=== PATIENT | female | born 1995 | race Caucasian/White ===

== ENCOUNTER → 2017-07-25 | Outpatient (CLI) | payer BC ==
[2017-07-25 19:05] LABS: HEMATOCRIT 33.2 % (37-47); MEAN CELL VOLUME 90.2 fL (80-100); MEAN CORPUSCULAR HGB CONC 34.3 g/dl (32-36); PLATELET COUNT 208 K/uL (130-400); RED BLOOD COUNT 3.68 M/uL (4.2-5.4)
== END ==
LOC: C.LAB 18:43
PROVIDERS: ATTEND Obstetrics & Gynecology
DX: O20.0 Threatened abortion (principal); Z3A.00 Weeks of gestation of pregnancy not specified

== ENCOUNTER → 2017-07-28 | Outpatient (CLI) | payer BC | END | disposition home or self-care (01) | LOC: C.PAPS 12:00 | PROVIDERS: ATTEND Obstetrics & Gynecology | DX: Z87.898 Personal history of other specified conditions (principal) ==

== ENCOUNTER → 2017-11-17 | Outpatient (CLI) | payer BC | END | disposition home or self-care (01) | LOC: C.LAB1850 09:09 | PROVIDERS: ATTEND Obstetrics & Gynecology | DX: N93.8 Other specified abnormal uterine and vaginal bleeding (principal) ==

== ENCOUNTER 2019-03-14 08:32 | Inpatient (IN) ==
[2019-03-14] MEDS ORDERED: OXYTOCIN 30 UNITS/500 ML BAG IV PRN ×3 (09:23→16:00)
--- NOTE | 2019-03-14 09:26 | History & Physical Report ---
Date of Service March 14, 2019 Assessment & Plan (1) SROM (spontaneous rupture of membranes): monitoring vitals and FHT (Category 1) Doing well so far will continue to monitor progress of labor and help with pitocin or readjustment of position as necessary Present on Admission?: Yes History of Present Illness Primary Care Provider: Amanuel Bethea MD 37w 2 days confirmed via ultrasound on 08/17/2018. Here for SROM and supervision of vaginal delivery. No complications with this . Has been attending OB appointments regularly. Currently taking vitamins, iron supplement, 20mg lexapro daily and has been taking valtrex for the past week due to hx of herpes vaginalis. No signs of active outbreak. Contractions: regular and more frequent since 3 am today. Fluid or Blood loss: SROM at 7 am this morning Movement: active Labs Blood type: A+ Antibody screen: neg H.7 on 01/10/2019 Hct: 31.9 Wbc: - Plt: - Rubella: immune VDRL/RPR: nonreactive Gonorrhea:neg Chlamydia:neg HIV: neg HBsAg: neg GBS:neg Glucose tolerance x2: neg x2 Allergies Allergy/AdvReac Type Severity Reaction Status Date / Time No Known Allergies Allergy Verified 03/13/19 10:26 Home Medications Home Medications Medication Instructions Recorded Confirmed Type PNV cmb#95-ferrous fumarate-FA 1 tab PO DAILY 02/26/19 03/14/19 History [] escitalopram oxalate [Lexapro] 20 mg PO DAILY 02/26/19 03/14/19 History valacyclovir 500 mg tablet 500 mg PO DAILY 03/11/19 03/14/19 History ferrous sulfate 1 tab PO DAILY 03/13/19 03/14/19 History Patient History Medical History Genital herpes simplex History of herpes genitalis Anxiety Bacterial vaginosis History of abnormal cervical Pap smear History of anemia Surgical History S/P wisdom tooth extraction Family History Grandfather (Maternal) Pancreatic cancer Social History Preferred Language: German Communication Ability: Effective Section Weaver Required: No Beliefs That Will Affect Care: None marital status: Current Living Situation: Spouse Feels Safe at Home: Yes Smoking Status: Former smoker Second Hand Exposure: No ; Hx Alcohol Use: No Hx Substance Use: No Review of Systems + fatigue; no fever and no chills no cough, no dyspnea and no wheezing + edema; no chest pain and no calf pain + cramping; no abdominal pain, no nausea, no vomiting, no constipation and no diarrhea/loose stools no dysuria and no difficulty urinating no back pain Physical Exam Constitutional: well developed and well nourished Respiratory: normal respiratory effort; no respiratory distress, no labored breathing and no cough Auscultation: no diminished lung sounds, no crackles, no rales, no rhonchi and no wheezes Cardiovascular: Rate/Rhythm: regular rate and regular rhythm Extremities: normal capillary refill and + pedal edema; no calf tenderness Gastrointestinal (Abdomen): Inspection/Auscultation: + abdomen distended and normal bowel sounds Percussion/Palpation: abdomen nontender and no guarding Genitourinary: Speculum/Bimanual Exam: + uterus enlarged OB Exam Abdomen: + fundal height Fundus: + firm and + relation to umbilicus (high above umbilicus); not tender Cervical Exam per OB: Dilation - 3 cm Effacement - 90% Station --2 Results & Data Vital Signs (Past 12 Hours) Vital Signs Pulse BP 03/14/19 08:53 86 118/77 Monitoring External Monitor Heart Monitor: Moderate Variability Accelerations No Decels baseline HR 135 Tocodynamometer Contraction Frequency: regular at every 3-4 minutes Supervising Physician Co-Signing Physician Notes Resident Physician Supervision Note: I was present with Dr. Edmonds during the history and exam. I discussed the case with the resident and agree with the findings and plan as documented in the note. Any exceptions or clarifications are listed here: [None] Documented By: Maggie Woo MD, FACOG
[2019-03-14 09:45] LABS: Hematocrit (blood only) 33.7 % (37-47); Hemoglobin 11.3 g/dL (12.0-16.0); Mean Corpuscular Volume 92.8 fL (80-100); Mean Platelet Volume 11.4 fL (7.4-10.4); Platelet Count 150 K/uL (130-400); RDW Coefficient of Variation 13.2 % (11.5-14.5); RDW Standard Deviation 44.5 fL (36.4-46.3); Red Blood Count 3.63 M/uL (4.2-5.4); White Blood Count 5.44 K/uL (4.8-10.8)
[2019-03-14 09:48] LABS: Mean Corpuscular Hgb Conc 33.5 g/dL (32-36)
[2019-03-14] MEDS: LACTATED RINGER'S 1,000 ML IV PRN ×2 (10:39→11:36)
[2019-03-14] MEDS ORDERED: BUPIVACAINE 0.25% 30 ML VIAL ONE (11:22)
[2019-03-14] MEDS ORDERED: ePHEDrine sulfate 50 MG/ML AMP ONE (11:22)
[2019-03-14] MEDS ORDERED: fentaNYL 2MCG/ML ROPIV 1.25MG/ML 100 ML BAG EPI ONE (11:23)
[2019-03-14] MEDS ORDERED: fentaNYL citrate 100 MCG/2 ML VIAL ONE (11:23)
--- NOTE | 2019-03-14 12:05 | Anesthesiology Consultation ---
Date of Service March 14, 2019 Assessment & Plan Chart Review Chart Review: Acceptable Risk for Labor Epidural Consults Requested none History Height/Weight Height: 5 ft 3 in Weight: 90.718 kg Allergies Allergy/AdvReac Type Severity Reaction Status Date / Time No Known Allergies Allergy Verified 03/13/19 10:26 Medications Home Medications Medication Instructions Recorded Confirmed Last Taken PNV cmb#95-ferrous fumarate-FA 1 tab PO DAILY 02/26/19 03/14/19 03/13/19 07:00 [] escitalopram oxalate [Lexapro] 20 mg PO DAILY 02/26/19 03/14/19 03/13/19 07:00 valacyclovir 500 mg tablet 500 mg PO DAILY 03/11/19 03/14/19 03/13/19 07:00 ferrous sulfate 1 tab PO DAILY 03/13/19 03/14/19 03/13/19 07:00 Active Medications Generic Name Dose Route Start Last Admin Trade Name Freq PRN Reason Stop Dose Admin Lactated Ringer's 1,000 mls @ 125 mls/hr 03/14/19 09:23 03/14/19 11:36 Lr IV 03/16/19 09:22 125 mls/hr .Q8H PRN Administration L&D Protocol Protocol Past Medical History Medical History Genital herpes simplex History of herpes genitalis Anxiety Bacterial vaginosis History of abnormal cervical Pap smear History of anemia Past Family History Family History Grandfather (Maternal) Pancreatic cancer Past Surgical History Surgical History S/P wisdom tooth extraction Social History Smoking Status: Former smoker Hx Alcohol Use: No Hx Substance Use: No substance use type: does not use Physical Exam Vital Signs Last Vital Signs Temp 36.8 C 03/14/19 11:48 Pulse 78 03/14/19 12:01 Resp 20 03/14/19 11:48 BP 127/84 03/14/19 12:00 Pulse Ox 96 03/14/19 12:01 Testing Laboratory Results 03/14/19 09:30
[2019-03-14] MEDS ORDERED: NALOXONE HCL 1 MG in SODIUM CHLORIDE 0.9% 1000ML 1,000 ML IV PRN (12:10)
[2019-03-14] MEDS ORDERED: NALBUPHINE HCL INJ 10 MG/ML AMP IV PRN (12:10)
[2019-03-14] MEDS ORDERED: NALOXONE HCL 0.4 MG/1 ML VIAL/CARP IV PRN (12:10)
[2019-03-14] MEDS ORDERED: fentaNYL 2MCG/ML ROPIV 1.25MG/ML 100 ML BAG EPI PRN (12:10)
[2019-03-14] MEDS ORDERED: DiphenhydrAMINE HCL 50 MG/ML VIAL IV PRN (12:10)
[2019-03-14] MEDS ORDERED: ePHEDrine sulfate 50 MG/ML AMP IV PRN (12:10)
[2019-03-14] MEDS ORDERED: SUPERCREAM 0.870% 15 GM JAR EXT PRN (16:00)
[2019-03-14] MEDS ORDERED: BISACODYL 10 MG SUPP PR PRN (16:00)
[2019-03-14] MEDS ORDERED: ACETAMINOPHEN 325 MG TAB PO PRN (16:00)
[2019-03-14] MEDS ORDERED: BENZOCAINE 20% AER SPR 82.5 GM CAN EXT PRN (16:00)
[2019-03-14] MEDS ORDERED: DIPHTHERIA/TETANUS/PERTUSSIS 0.5 ML SYR/VIAL IM ONE (16:00)
[2019-03-14] MEDS ORDERED: HYDROCORTISONE ACETATE 25 MG SUPP PR PRN (16:00)
[2019-03-14] MEDS ORDERED: OXYCODONE/ACETAMINOPHEN 5mg/325mg TAB PO PRN (16:00)
--- NOTE | 2019-03-14 16:52 | Delivery Summary ---
DATE OF OPERATION: 03/14/2019 The patient is a 23-year-old 3, para 1-0-1-1 white female, EDC of 04/02/2019 who presented in active labor. She was 3-4 cm dilated, had membranes ruptured for clear fluid. She received effective epidural analgesia. GBS is negative. She had been on Valtrex prophylactically because of genital herpes. She has not had an outbreak during this . She progressed to full dilation and pushed effectively over intact perineum delivering a viable male infant with a loose nuchal cord and direct occiput posterior presentation. The infant was placed on the mother's abdomen for further attention and drying. After approximately 30 seconds the cord was clamped and cut. The had good heart rate, but had poor respiratory effort and was then taken to the baby bed for further stimulation and evaluation. The placenta was expressed intact with a 3-vessel cord. A superficial perineal laceration was bleeding; it was repaired with 3-0 chromic in the usual fashion. Estimated blood loss was 300 mL. bleeding was controlled with dilute Pitocin. The was taken to the nursery for further evaluation, although he had good oxygenation and good heart rate. I attest to the content of the Intraoperative Record and any orders documented therein. Any exception s are noted below.
--- NOTE | 2019-03-14 17:01 | Anesthesia Procedure Note ---
Date of Service March 14, 2019 Anesthesia Post Epidural Note Vital Signs Vital Signs: Temp Pulse Resp BP Pulse Ox 36.5 C 75 20 130/74 97 03/14/19 13:45 03/14/19 17:00 03/14/19 15:45 03/14/19 17:00 03/14/19 15:21 Notes Mental Status: alert / awake / arousable Nausea / Vomiting: adequately controlled Pain: adequately controlled Airway Patency, RR, SpO2: stable & adequate BP & HR: stable & adequate Hydration State: stable & adequate Neuraxial Anesthesia: was administered and sensory block is resolving Anesthetic Complications: no major complications apparent and Pt Satisfied with anesthetic care Epidural: Removed without complications and With tip intact
[2019-03-14] MEDS: IBUPROFEN 600 MG TAB PO PRN (21:31)
[2019-03-14] MEDS: DOCUSATE SODIUM 100 MG CAP PO SCH (21:32)
--- NOTE | 2019-03-15 06:54 | Obstetrical Progress Note ---
Date of Service <Renu Edmonds MD - Last Filed: 03/15/19 06:54> March 15, 2019 Assessment & Plan <Renu Edmonds MD - Last Filed: 03/15/19 06:54> (1) Encounter for care and examination after delivery: Doing very well this morning. s/p with SROM at 37w. Ambulating, eating, tolerating PO fluids. Pain well controlled with motrin. Consider discharge this evening after 24H PP if pt agreeable. (2) SROM (spontaneous rupture of membranes): (3) History of herpes genitalis: Subjective <Renu Edmonds MD - Last Filed: 03/15/19 06:54> Ambulation: ambulating normally Voiding: no voiding problems Passing Gas:: Yes Diet Tolerance:: regular diet Lochia:: Moderate Feeding Type:: breast feeding Current Pain Level(1-10): 2 Constitutional: + fatigue; no fever and no chills Respiratory: no cough and no dyspnea No shortness of breath Cardiovascular: + edema; no chest pain, no syncope and no calf pain Breast: no breast pain Gastrointestinal: + cramping; no abdominal pain, no nausea, no vomiting, no constipation and no diarrhea/loose stools Genitourinary (female): + dysuria (burning with urination due to stitches); no difficulty urinating Neurologic: no headache(s) Physical Exam <Renu Edmonds MD - Last Filed: 03/15/19 06:54> Constitutional well developed and well nourished Respiratory normal respiratory effort; no respiratory distress, no labored breathing and no cough Auscultation: no crackles, no rales, no rhonchi and no wheezes Cardiovascular Rate/Rhythm: regular rate and regular rhythm Heart Sounds: no gallop, no murmur and no cardiac rub Extremities: + pedal edema and + edema (2+ edema to knees bilaterally); no calf tenderness Gastrointestinal (Abdomen) Inspection/Auscultation: + abdomen distended and normal bowel sounds Percussion/Palpation: + abdomen tender and abdomen soft; no guarding Genitourinary Uterus firm, palpable at umbilicus, some tenderness to palpation. Results & Data <Renu Edmonds MD - Last Filed: 03/15/19 06:54> Vital Signs (Past 12 Hours) Vital Signs Temp Pulse Resp BP Pulse Ox 03/15/19 03:40 36.8 C 79 16 115/76 97 03/14/19 23:20 36.6 C 77 16 109/70 96 03/14/19 19:40 37.1 C 84 16 118/75 96 <Maggie Woo MD, FACOG - Last Filed: 03/15/19 08:30> Co-Signing Physician Notes Resident Physician Supervision Note: I interviewed and examined the patient. Discussed with Dr. Edmonds and agree with findings and plan as documented in the note. Any exceptions or clarifications are listed here: [None] Documented By: Maggie Woo MD, FACOG
[2019-03-15] MEDS ORDERED: PRENATAL VITAMIN 1 TAB PO SCH (08:00)
[2019-03-15 08:03] LABS: Hematocrit (blood only) 30.8 % (37-47); Hemoglobin 10.1 g/dL (12.0-16.0); Mean Corpuscular Hgb Conc 32.8 g/dL (32-36); Mean Corpuscular Volume 95.7 fL (80-100); Mean Platelet Volume 11.1 fL (7.4-10.4); Platelet Count 121 K/uL (130-400); RDW Coefficient of Variation 13.3 % (11.5-14.5); RDW Standard Deviation 46.1 fL (36.4-46.3); Red Blood Count 3.22 M/uL (4.2-5.4); White Blood Count 5.82 K/uL (4.8-10.8)
[2019-03-15] MEDS: IBUPROFEN 600 MG TAB PO PRN ×2 (08:29→12:24)
[2019-03-15] MEDS: DOCUSATE SODIUM 100 MG CAP PO SCH (08:29)
[2019-03-15] MEDS ORDERED: ESCITALOPRAM OXALATE 20 MG TAB PO SCH (09:00)
[2019-03-15] MEDS ORDERED: BISACODYL 5 MG TABEC PO SCH (20:00)
== END 2019-03-15 17:35 | disposition home or self-care (01) | DRG 807 ==
LOC: OPB 08:32 → 4S1 08:32 → 4S2 19:10